=== PATIENT | male | born 1950 | race Caucasian/White ===

== ENCOUNTER 2022-09-07 18:03 | Emergency (ER) | payer SELFPAY ==
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
[2022-09-07] MEDS: LORazepam INJ (*CRX) 2 MG/ML VIAL (21:36)
== END 2022-09-07 21:44 ==
PROVIDERS: Emergency Provider Physician Assistant; PCP Hospitalist
DX: F91.1 Conduct disorder, childhood-onset type (principal); F03.911 Unspecified dementia, unspecified severity, with agitation
CPT/HCPCS: 96374; 99284; J2060

== ENCOUNTER 2024-01-30 23:12 | Emergency (ER) | payer BC, SELFPAY ==
--- NOTE | ~2024-01-30 | CT_ITS ---
CT brain wo con Ordering provider: Yang Deleon MD History: 73 years Male with . altered mental status . Comparison: None. Technique: CT of the head without contrast. Radiation reduction technique utilized.The dose-length pr oduct was 756.67 mGy-cm FINDINGS: BRAIN PARENCHYMA AND CSF SPACES: Mild leukoaraiosis and diffuse cortical atrophy. Mild atheromatous d isease.No midline shift, mass effect or hemorrhage. The brain parenchyma and CSF spaces are otherwis e normal. VISUALIZED PARANASAL SINUSES: Well aerated. MASTOIDS: Well aerated. BONES: The bones appear intact. SOFT TISSUES: Visualized nasopharynx is normal. Superficial soft tissues are normal. IMPRESSION: No acute intracranial findings. Reviewed, dictated and finalized at location A. E TEACHER
--- NOTE | ~2024-01-30 | XR_ITS ---
XR chest 1V portable Ordering provider: Yang Deleon MD History: 73 years Male with . weakness . Comparison: None. FINDINGS: MEDIASTINUM: The cardiac silhouette is not enlarged. LUNGS: No infiltrates, effusions or pneumothorax. OTHER: No free air under the diaphragm. Degenerative changes of the spine. IMPRESSION: No acute cardiopulmonary pathology. Reviewed, dictated and finalized at location A. STOKER
[2024-01-30 23:12] VITALS: BP 124/65; PULSE 110; RESP 16; TEMP 36.8; O2SAT 99
[2024-01-30 23:51] LABS: Basophils Absolute Auto 0.1 K/mm3 (0.0-0.1); Basophils Percent Auto 1.1 % (0.2-1.2); Eosinophils Absolute Auto 0.1 K/mm3 (0-0.3); Eosinophils Percent Auto 2.2 % (0-4.4); Hematocrit 31.8 % (42.0-52.0); Hemoglobin 10.6 g/dL (14.0-18.0); Immature Granulocyte Absolute 0.04 K/mm3 (0.00-0.031); Immature Granulocyte Percent A 0.6 % (0-0.5); Lymphocytes Absolute Auto 1.71 K/mm3 (0.9-3.2); Lymphocytes Percent Auto 27.4 % (18.3-44.2); Mean Corpuscular HGB Conc 33.3 g/dl (32-36); Monocytes Percent Auto 16.5 % (2.6-8.5); Neutrophils Absolute Auto 3.2 K/mm3 (1.3-6.7); Neutrophils Percent Auto 52.2 % (45.5-73.1); Platelet Count Result 225 k/mm3 (150-375); Red Blood Count 3.42 M/mm3 (4.6-6.20); Red Cell Distribution Width 13.6 % (11.5-14.5); White Blood Count 6.2 K/mm3 (4.5-10.0)
[2024-01-31] VITALS (25 sets, daily range): BP systolic 89–112; BP diastolic 48–62; PULSE 71–94; RESP 12–22; O2SAT 91–99
[2024-01-31 00:03] LABS: Alanine Aminotransferase 13 U/L (6-50); Albumin Level 3.5 g/dL (3.5-5.1); Alkaline Phosphatase 70 U/L (38-126); Anion Gap 6 mmol/L (4-12); Aspartate Amino Transferase 23 U/L (17-59); Bilirubin,Total 0.8 mg/dL (0.2-1.3); Blood Urea Nitrogen 15 mg/dL (9-20); Calcium 8.1 mg/dL (8.4-10.2); Carbon Dioxide 24 mmol/L (22-30); Chloride 102 mmol/L (98-107); Estimated Glomerular Filt Rate > 60; Glucose 200 mg/dL (65-110); Potassium 3.5 mmol/L (3.4-5.0); Sodium 132 mmol/L (137-145)
[2024-01-31 00:04] LABS: Lactic Acid Reflex 3.9 mmol/L (0.7-2.0)
[2024-01-31 00:07] LABS: INR 1.1; Prothrombin Time 14.6 Seconds (11.1-14.7)
[2024-01-31 00:08] LABS: Partial Thromboplastin Time 29.5 Seconds (22.3-36.8)
[2024-01-31 00:16] LABS: Troponin I < 0.012 ng/mL (0.000-0.034)
[2024-01-31] MEDS: SODIUM CHLORIDE 0.9% IV 1,000 ML 999 ML IV CONT ×2 (00:24→02:10)
--- NOTE | 2024-01-31 00:35 | ECG_ITS ---
Test Date: 2024-01-31 00:35:45 Measurements Intervals [place] Rate: 73 P: 31 [place]: 155 QRS: -54 QRSD: 116 T: 53 QT: 376 QTc: 416 Interpretive Statements SINUS RHYTHM LEFT ANTERIOR FASCICULAR BLOCK [QRS AXIS <= -45, QR IN I, RS IN II] PROBABLE LATERAL MYOCARDIAL INFARCTION , OF INDETERMINATE AGE [35 ms Q WAVE IN I/aVL/V5/V6] No previous ECG available for comparison Electronically Signed On 01-31-2024 15:14:44 PICKER OPERATOR by Shaggy Bunch M.D.
[2024-01-31] MEDS: CELLULOSE OXIDIZED 2 x 3 INCH 1 PKT XX (01:08)
--- NOTE | 2024-01-31 01:59 | PC.NURSE ---
spoke with RN at [facility] who was asking for an update on pt. Updated on plan to get patient up and walking and if he feels okay can return to facility. Facility on board with this plan. Confirmed patient walks on his own without aides and is AxO1-2 at baseline.
--- NOTE | 2024-01-31 02:10 | PC.NURSE ---
pt hypotensive, MD Deleon made aware. New orders placed for IV fluids, started per APR on pressure bag
[2024-01-31 02:49] LABS: Reflex Lactic Acid Yes or No Add Lactic
--- NOTE | 2024-01-31 03:07 | PC.NURSE ---
Assumed care of pt from CHRISTIANO Decker at this time.
--- NOTE | 2024-01-31 04:28 | ED_ITS ---
HPI - General Adult General Chief complaint: Skin/Abscess/Foreign Body Stated complaint: Wound LLE, possible arterial Time Seen by Provider: 01/30/24 23:24 History of Present Illness HPI narrative: patient 73-year-old gentleman presents emergency department with chief complaint of bleeding from the right leg. Patient was found standing on a pool of blood at the facility where he is resident of patient will have currently has no complaints patient is baseline alert oriented times 1-2 Related Data Allergies Allergy/AdvReac Type Severity Reaction Status Date / Time No Known Allergies Allergy Verified 01/30/24 23:40 Review of Systems Review of Systems: A 10 system review of systems was completed on the patient and is negative except for what is stated in the HPI. Nursing and ancillary documentation was reviewed. [facility] Past Medical History Medical History Dementia Exam Narrative: GENERAL: Well-appearing, well-nourished, and in no acute distress. HEAD: Normocephalic, atraumatic. EYES: PERRLA and EOMI. ENT: Nares clear, no rhinorrhea or epistaxis. Mucous membranes moist. NECK: Supple. CHEST: Clear to auscultation. No respiratory distress. HEART: Regular rate and rhythm. No murmur heard. Normal peripheral pulses. ABDOMEN: Soft, nontender, nondistended, normal active bowel sounds. EXTREMITIES: Normal range of motion. No edema. SKIN: Warm, dry, no rash. there is an ulceration present to the right lower extremity there intact dorsalis pedis pulses. There is no active bleeding at this time NEURO: No focal deficits. Alert and oriented x1. PSYCH: Normal mood and affect. Course Vital Signs Vital signs: Vital Signs Temperature 36.8 C 01/30/24 23:12 Pulse Rate 110 H 01/30/24 23:12 Respiratory Rate 16 01/30/24 23:12 Blood Pressure 124/65 01/30/24 23:12 Pulse Oximetry 99 01/30/24 23:12 Oxygen Delivery Room Air 01/30/24 23:12 Temperature 36.8 C 01/30/24 23:12 Pulse Rate 78 01/31/24 02:46 Respiratory Rate 19 01/31/24 02:46 Blood Pressure 110/57 L 01/31/24 02:46 Pulse Oximetry 96 01/31/24 02:46 Oxygen Delivery Room Air 01/30/24 23:12 Medical Decision Making MDM Narrative Medical decision making narrative: there is no wound required repair. A hemostatic dressing was applied to the ulceration on the right lower extremity the patient was observed in the emergency department and is currently able to stand on his own without difficulty and the patient will be discharged back to nursing facility Vital Signs Vital Signs: Vital Signs Temperature 36.8 C 01/30/24 23:12 Pulse Rate 110 H 01/30/24 23:12 Respiratory Rate 16 01/30/24 23:12 Blood Pressure 124/65 01/30/24 23:12 Pulse Oximetry 99 01/30/24 23:12 Oxygen Delivery Room Air 01/30/24 23:12 Temperature 36.8 C 01/30/24 23:12 Pulse Rate 78 01/31/24 02:46 Respiratory Rate 19 01/31/24 02:46 Blood Pressure 110/57 L 01/31/24 02:46 Pulse Oximetry 96 01/31/24 02:46 Oxygen Delivery Room Air 01/30/24 23:12 Lab Data 01/30/24 23:37 01/30/24 23:37 Labs: Lab Results 01/30/24 Range/Units 23:37 WBC 6.2 (4.5-10.0) K/mm3 RBC 3.42 L (4.6-6.20) M/mm3 Hgb 10.6 L (14.0-18.0) g/dL Hct 31.8 L (42.0-52.0) % MCV 93.0 (80-100) fl MCH 31.0 (26-34) pg MCHC 33.3 (32-36) g/dl RDW 13.6 (11.5-14.5) % Plt Count 225 (150-375) k/mm3 MPV 11.0 H (7.4-10.4) fl Immature Gran % (Auto) 0.6 H (0-0.5) % Neut % (Auto) 52.2 (45.5-73.1) % Lymph % (Auto) 27.4 (18.3-44.2) % [place] % (Auto) 16.5 H (2.6-8.5) % Eos % (Auto) 2.2 (0-4.4) % Baso % (Auto) 1.1 (0.2-1.2) % Lymph # (Auto) 1.71 (0.9-3.2) K/mm3 [place] # (Auto) 1.0 H (0.1-0.6) K/mm3 Eos # (Auto) 0.1 (0-0.3) K/mm3 Baso # (Auto) 0.1 (0.0-0.1) K/mm3 Abs Immat Gran (auto) 0.04 H (0.00-0.031) K/mm3 Absolute Neuts (auto) 3.2 (1.3-6.7) K/mm3 Absolute Nucleated RBC 0.000 (0.0-0.012) K/mm3 Nucleated RBC % 0.0 (0.0-0.2) % PT 14.6 (11.1-14.7) Seconds INR 1.1 APTT 29.5 (22.3-36.8) Seconds Sodium 132 L (137-145) mmol/L Potassium 3.5 (3.4-5.0) mmol/L Chloride 102 (98-107) mmol/L Carbon Dioxide 24 (22-30) mmol/L Anion Gap 6 (4-12) mmol/L BUN 15 (9-20) mg/dL Creatinine 0.90 (0.7-1.3) mg/dL Estim Creat Clear Calc Not Reportable Estimated GFR > 60 (59 - ) Glucose 200 H (65-110) mg/dL Lactic Acid 3.9 H (0.7-2.0) mmol/L Calcium 8.1 L (8.4-10.2) mg/dL Magnesium 2.0 (1.6-2.3) mg/dL Total Bilirubin 0.8 (0.2-1.3) mg/dL AST 23 (17-59) U/L ALT 13 (6-50) U/L Alkaline Phosphatase 70 (38-126) U/L Troponin I < 0.012 (0.000-0.034) ng/mL Total Protein 6.0 L (6.3-8.2) g/dL Albumin 3.5 (3.5-5.1) g/dL Discharge Plan Discharge Clinical Impression: Leg wound, right Patient Disposition: [facility] Skilled Nursing/Asst Living Condition: Stable Instructions: Antibiotic Form, Acute Wounds (ED) Follow-up/Referrals: Iisdro Tamez MD [Primary Care Provider] - Time of Disposition: 04:31
--- NOTE | 2024-01-31 04:56 | PC.NURSE ---
Report called to Shirley at [facility] further questions at this time. Pt to go back by [facility] ETA 9am.
--- NOTE | 2024-01-31 08:29 | PC.NURSE ---
EDP Dr Jarvis aware of automatic bp cuff reading 81/53. Verbal order to do manual BP. Manual BP performed with reading of 110/53. EDP Dr. Jarvis aware, no new orders at this time.
== END 2024-01-31 10:57 ==
PROVIDERS: Emergency Provider Emergency Medicine; PCP Hospitalist
DX: S81.801A Unspecified open wound, right lower leg, initial encounter (principal); F03.90 Unspecified dementia, unspecified severity, without behavioral disturbance, psychotic disturbance, mood disturbance, and anxiety
CPT/HCPCS: 36415; 70450; 71045; 80053; 83605; 83735; 84484; 85025; 85610; 85730; 93005; 96360; 96361; 99284; J7030

== ENCOUNTER 2024-12-30 06:23 | Emergency (ER) | payer BC, SELFPAY ==
[2024-12-30 06:18] VITALS: BP 167/84; PULSE 93; RESP 14; TEMP 36.6; O2SAT 98
--- NOTE | 2024-12-30 06:43 | PC.NURSE ---
This RN called [place] poison control and spoke to Abigail and was told that it is highly unlikely toxic and to monitor for symptoms such as N/V and signs of inebriation for 1-2 hours and only suggestion is to check blood alcohol level.
[2024-12-30 06:47] VITALS: BP 152/81; PULSE 100; RESP 24; O2SAT 97
[2024-12-30 07:03] VITALS: PULSE 100
--- NOTE | 2024-12-30 07:11 | PC.NURSE ---
This RN called lab and asked to add on ETOH lab and was told they would.
[2024-12-30 07:20] LABS: Beta-Hydroxybutyrate/Acetoace. 0.10 mmol/L (0.02-0.27)
[2024-12-30 08:18] LABS: Add Urine Microscopic? NO; Appearance Urine Clear (Clear); Glucose Urine UA Negative (Negative); Leukocyte Esterase Ur Negative LEU/UL (Negative); Nitrate Urine Negative (Negative); Specific Grav Ur 1.010 (1.001-1.035)
[2024-12-30 08:45] LABS: Cannabinoid Screen Urine Negative (Negative)
[2024-12-30 09:05] VITALS: BP 136/67; PULSE 63; RESP 15; O2SAT 91
[2024-12-30 09:40] LABS: Acetaminophen < 10 ug/mL (10-30); Alanine Aminotransferase 15 U/L (6-50); Albumin Level 4.2 g/dL (3.5-5.1); Alkaline Phosphatase 69 U/L (38-126); Anion Gap 6 mmol/L (4-12); Aspartate Amino Transferase 30 U/L (17-59); Bilirubin,Total 0.9 mg/dL (0.2-1.3); Blood Urea Nitrogen 17 mg/dL (9-20); Calcium 8.8 mg/dL (8.4-10.2); Carbon Dioxide 26 mmol/L (22-30); Chloride 105 mmol/L (98-107); Estimated CRCL calculation 67 ml/min; Estimated Glomerular Filt Rate > 60; Glucose 105 mg/dL (65-110); Potassium 4.1 mmol/L (3.4-5.0); Salicylate < 1.0 mg/dL (2-20); Sodium 137 mmol/L (137-145); Total Protein 7.5 g/dL (6.3-8.2)
[2024-12-30 09:47] LABS: Hematocrit 36.1 % (42.0-52.0); Hemoglobin 11.8 g/dL (14.0-18.0); Immature Granulocyte Percent A 0.1 % (0-0.5); Lymphocytes Absolute Auto 0.59 K/mm3 (0.9-3.2); Mean Corpuscular HGB Conc 32.7 g/dl (32-36); Mean Corpuscular Hemoglobin 30.0 pg (26-34); Mean Corpuscular Volume 91.9 fl (80-100); Nucleated Red Blood Cells Absolute Auto 0.000 K/mm3 (0.0-0.012); Nucleated Red Blood Cells Perc 0.0 % (0.0-0.2); Platelet Count Result 189 k/mm3 (150-375); Red Blood Count 3.93 M/mm3 (4.6-6.20); White Blood Count 6.9 K/mm3 (4.5-10.0)
[2024-12-30 10:00] LABS: INR 1.1; Prothrombin Time 14.2 Seconds (11.1-14.7)
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
[2024-12-30 10:01] LABS: Partial Thromboplastin Time 31.0 Seconds (22.3-36.8)
[2024-12-30 10:14] LABS: Thyroid Stimulating Hormone Reflex 2.960 uIU/mL (0.465-4.68)
== END 2024-12-30 11:44 ==
PROVIDERS: Student in an Organized Health Care Education/Training Program; Emergency Provider Emergency Medicine; PCP Hospitalist
DX: F03.90 Unspecified dementia, unspecified severity, without behavioral disturbance, psychotic disturbance, mood disturbance, and anxiety (principal)
CPT/HCPCS: 36415; 80053; 80143; 80179; 80307; 81003; 82010; 82077; 84443; 85025; 85610; 85730; 99284